=== PATIENT | male | born 1965 | race African-American/Black ===

== ENCOUNTER 2024-04-28 05:50 | Day surgery (SDC) | payer BC ==
[2024-04-28] MEDS ORDERED: TYLENOL EXTRA STRENGTH 500 MG ONE (06:13)
[2024-04-28] MEDS ORDERED: celeBREX 100 MG ONE (06:13)
[2024-04-28] MEDS ORDERED: CLINDAMYCIN-D5W 900 MG/50 ML*** 900 MG/50 ML BAG IV ONE (06:13)
[2024-04-28] MEDS ORDERED: NEURONTIN ONE (06:13)
[2024-04-28] MEDS ORDERED: Lactated Ringers 1,000 ML IV ONE ×2 (06:13→07:02)
[2024-04-28] MEDS ORDERED: Decadron 4 MG ONE (06:13)
[2024-04-28] MEDS: Decadron 4 MG PO ONE (06:15)
[2024-04-28] MEDS: Lactated Ringers 1,000 ML IV SCH (06:15)
[2024-04-28] MEDS: celeBREX 100 MG PO ONE (06:15)
[2024-04-28] MEDS: TYLENOL EXTRA STRENGTH 500 MG PO ONE (06:16)
[2024-04-28] MEDS: NEURONTIN PO ONE (06:16)
[2024-04-28] MEDS: CLINDAMYCIN-D5W 900 MG/50 ML*** 900 MG/50 ML BAG IV ONE (06:23)
[2024-04-28 06:58] LABS: Hematocrit 41.9 % (40.1-51.0); Hemoglobin 13.8 g/dL (13.7-17.5); Mean Cell Volume 93.5 fL (79.0-92.2); Mean Corpuscular Hemoglobin 30.8 pg (25.7-32.2); Mean Corpuscular Hgb Concent. 32.9 g/dL (32.3-36.5); Mean Platelet Volume 10.8 fL (9.4-12.4); Platelet Count 156 x10^3/uL (163-337); Red Blood Count 4.48 x10^6/uL (4.63-6.08); Red Cell Distribution Width 13.7 % (11.6-14.4); White Blood Count 5.7 x10^3/uL (4.23-9.07)
[2024-04-28] MEDS ORDERED: Xylocaine 1% Vial 30 ML PF IJ ONE (07:02)
[2024-04-28] MEDS ORDERED: Marcaine Mpf 0.5% Vial 30 Ml ONE (07:02)
[2024-04-28 07:16] LABS: ALBUMIN 4.2 g/dL (3.5-5.0); ANION GAP 16.1 MEQ/L (5-15); BILIRUBIN,TOTAL 0.7 mg/dL (0.2-1.3); Calcium 9.2 mg/dL (8.4-10.2); Creatinine 1 1.97 mg/dL (0.66-1.25); EST GLOMERULAR FILTRATION RATE 38.4 ML/MIN; Potassium 4.4 mmol/L (3.5-5.1); Total Protein 7.2 g/dL (6.3-8.2)
[2024-04-28] MEDS ORDERED: Xylocaine-Mpf 2% 5 Ml Vial ONE (08:29)
[2024-04-28] MEDS ORDERED: Zofran 4 MG/2 ML VIAL ONE (08:29)
[2024-04-28] MEDS ORDERED: Quelicin Fliptop 200 MG/10 ML ONE (08:29)
[2024-04-28] MEDS ORDERED: SUBLIMAZE 100 MCG/2 ML ONE ×2 (08:30→08:57)
[2024-04-28] MEDS ORDERED: propofoL IV ONE (08:31)
[2024-04-28] MEDS ORDERED: ROCURONIUM BROMIDE IV ONE (09:00)
[2024-04-28] MEDS ORDERED: BRIDION 200MG/2ML IV ONE (09:21)
--- NOTE | 2024-04-28 09:51 | XRAY ---
Indication: Right 1st MTP arthrodesis. Intraoperative fluoroscopy provided for 52 seconds. 11 digital spot images submitted for interpretation ultimately demonstrates 1st MTP arthrodesis with intact anterior plate and multiple screws. Correlate with intraoperative findings/report.
[2024-04-28 10:59] VITALS: RESP 18; TEMP 97.2
[2024-04-28 11:13] VITALS: BP 128/69; PULSE 85; O2SAT 96
--- NOTE | 2024-04-28 15:01 | XRAY ---
52 seconds of fluoroscopy was used in surgery for a right 1st MTP arthrodesis.
--- NOTE | 2024-04-30 10:52 | OP ---
SURGERY DATE/TIME: 04/28/2024 [id number] PREOPERATIVE DIAGNOSES: 1) Osteoarthritis, first metatarsophalangeal joint. 2) Hallux abductovalgus. 3) Right foot pain. 4) Pes planus. 5) Left foot ingrown toenail, hallux. POSTOPERATIVE DIAGNOSES: 1) Osteoarthritis, first metatarsophalangeal joint. 2) Hallux abductovalgus. 3) Right foot pain. 4) Pes planus. 5) Left foot ingrown toenail, hallux. PROCEDURES: 1) First metatarsophalangeal joint arthrodesis, right foot. 2) Nail avulsion with matrixectomy, left foot. SURGEON: Sung Thapa DPM. ASSISTANTS: FRANSICO Schmitz, and Vilma Alfredo. HEMOSTASIS: Ankle tourniquet set to 250 mmHg for a total of 39 total tourniquet minutes. ESTIMATED BLOOD LOSS: Approximately 5 mL. MATERIALS: 4-0 Monocryl, 3-0 nylon, first MPJ 0 degree ALPS plate with a Max VPC 4.0 x36 mm. INDICATIONS FOR PROCEDURE: The patient is a very pleasant 58-year-old male who presented with complaints of big toe pain to the bilateral lower extremity, the right of which is worse than the left. Patient has been having this pain for over 5 years and has seen another provider who planned surgical intervention with an arthroplasty of the first metatarsophalangeal joint. However, the surgery was rejected by his insurance. At this time, patient has sought out my services. At this time, the arthritis is very advanced and given his pes planus, I do not think he is a great candidate for a joint replacement given the altered biomechanics to that joint. We did discuss the loss of range of motion. However, the range of motion has been fairly restricted anyway at this point and the goal of the procedure is to reduce pain and hopefully improve function. From that standpoint, patient has been consented. He understands all risks, complications and benefits of surgical intervention at this time, including but not limited to infection; hematoma; seroma; possibility of delayed wound healing, nonwound healing and possible need for further surgical intervention at a later date. No guarantees were provided as to the outcome of surgical intervention. Plenty of time was allowed for the patient to ask questions, which were answered to his apparent satisfaction. It is at this time he decided to proceed. DESCRIPTION OF PROCEDURE AND FINDINGS: From that standpoint, patient was brought into the operating room and placed on the operating room table in the supine position. At this time, general anesthesia was administered until the patient was adequately sedated. A well-padded ankle tourniquet was applied to the patient's right ankle, and the tourniquet was set to 250 mmHg. The right foot was prepped and draped in the typical sterile fashion and lowered onto the surgical field. At this time, attention was directed to the dorsal aspect of the right foot where a linear incision was made just medial to the extensor hallucis longus tendon. This was carried down, being careful not to damage any neurovascular structures along the way. Careful retraction was held and the extensor hallucis longus was pulled laterally. Along the dorsal margin of the capsule, a linear incision was made, exposing the joint capsule where there was significant flattening of the metatarsal head, as well as eburnation that was exposed, as well as scar tissue within the joint. Decision was made to proceed with a cup and conical reamer, size 22 in order to reshape the joint at the metatarsal side. The cup reamer was then utilized to remove any remaining cartilage off the proximal phalanx. Once this was performed, all cartilage was flushed out of this site. Drill holes were made utilizing a 2 mm drill on both the metatarsal head and the proximal phalanx side. Once that was performed, rongeur was utilized to remove any overhang and a 0 degree first metatarsophalangeal joint locking plate with ALPS was fixated to the dorsal aspect of the foot. An interfragmentary wire was placed and then interfragmentary screw was then placed but not engaged. Once this was performed, distal cortical screws and locking screws were placed to affix the plate to the bone and then, the eccentric screw was placed inside the first metatarsophalangeal joint plate. Once this was performed, alternation took place between the interfragmentary and the eccentric screw to gain the maximal amount of compression through this joint. Once this was performed, a combination of locking and nonlocking screws were then placed into the plate to secure, checking under multiple views and deemed to be in an adequate position. Loading the foot with a foot brace, there was adequate purchase of the hallux tuft and making sure that there was no floating toe associated with the fusion. Once this was performed, copious amounts of sterile saline were utilized to flush the surgical site. A 4-0 Monocryl was utilized to coapt the deep closure with the capsule, as well as the extensor hallucis longus tendon. A 4-0 Monocryl was then utilized to coapt the subcutaneous skin edges in a simple interrupted buried-type fashion and then, 3-0 nylon was performed in a horizontal mattress-type fashion to coapt the skin edges. Once this was performed, a dressing consisting of Betadine, Adaptic, 4 x 4, Kerlix, ABD and an Willi was applied to the right lower extremity. Following this, the left great toe had a 10 mL injection hallux block performed. Once this was performed, a spatula was utilized to remove the entire toenail, which was removed utilizing a straight Haydee. After this, a curette was utilized to damage the nail matrix. Once this was performed, phenol was then utilized to chemically cauterize the nail matrix. Once this was performed, Silvadene was applied to the nail bed and was covered with 2 x 2 and Coban. Patient was then reversed from anesthesia and returned to the postoperative anesthesia care unit with vital signs stable and vascular status intact. Patient handled the anesthesia, as well as the procedure, without significant complication. Postoperative orders as indicated in the patient's discharge chart.
== END 2024-04-28 11:26 | disposition home or self-care (01) ==
LOC: SDC 05:50
PROVIDERS: ATTEND Podiatrist Foot & Ankle Surgery
DX: M19.071 Primary osteoarthritis, right ankle and foot (principal); M20.11 Hallux valgus (acquired), right foot; M79.671 Pain in right foot; M21.41 Flat foot [pes planus] (acquired), right foot; L60.0 Ingrowing nail
CPT/HCPCS: 11750; 28750; 36415; 73630; 76000; 80053; 85027; 93005; C1713; J0330; J2405; J2704; J3010; L4386; A9270-GY